=== PATIENT | female | born 1985 | race Caucasian/White ===

== ENCOUNTER → 2022-09-25 10:11 | Outpatient (CLI) | payer OTHER, SELFPAY ==
[2022-09-25 19:15] LABS: Adenovirus,PCR Not Detected (NotDetected); Bordetella Pertussis Not Detected (NotDetected); Chlamydophila Pneumoniae, PCR Not Detected (NotDetected); Coronavirus 229E Not Detected (NotDetected); Coronavirus NL63 Not Detected (NotDetected); Coronavirus OC43 Not Detected (NotDetected); Coronovirus HKU1,PCR Not Detected (NotDetected); Human Metapneumovirus Not Detected (NotDetected); Influenza A, PCR Not Detected (NotDetected); Influenza AH1, 2009 Not Detected (NotDetected); Influenza AH1, PCR Not Detected (NotDetected); Influenza AH3,PCR Not Detected (NotDetected); Influenza B, PCR Not Detected (NotDetected); Mycoplasma Pneumoniae, PCR Not Detected (NotDetected); Parainfluenza 1, PCR Not Detected (NotDetected); Parainfluenza 2, PCR Not Detected (NotDetected); Parainfluenza 3, PCR Not Detected (NotDetected); Parainfluenza 4, PCR Not Detected (NotDetected); Respiratory Syncytial Virus Not Detected (NotDetected); Rhinovirus/Enterovirus Not Detected (NotDetected)
[2022-09-27 03:40] LABS: Coronavirus 19, PCR Detected (NotDetected)
== END ==
PROVIDERS: PCP Nurse Practitioner; Visit Provider Nurse Practitioner
DX: U07.1 COVID-19 (principal)
CPT/HCPCS: 87581; 87632; 87798; C9803; U0003; U0005

== ENCOUNTER → 2022-10-12 09:15 | Outpatient (CLI) | payer OTHER, SELFPAY ==
--- NOTE | 2022-10-12 09:40 | XR_ITS ---
FINAL REPORT CLINICAL HISTORY: palpitations post COVID FINDINGS: Two views of the chest were obtained. The heart size and pulmonary vascularity are within normal limits. The mediastinum is normal. No acute pulmonary abnormality is identified. There is no pneumothorax. The bony thorax is intact. IMPRESSION: No active cardiopulmonary disease. Reviewed, Interpreted and Dictated by Marcell Greene III, MD Transcribed by Gladys Massey Authenticated and [facility]
--- NOTE | 2022-10-12 09:41 | ECG_ITS ---
APPROVED REPORT Exam: Resting ECG HR:74 bpm ECG Measurements Heart Rate 74 AXES GA 201 P 86 QRSd 92 QRS 81 QT 364 T 75 QTc 392 Conclusion SINUS RHYTHM NONSPECIFIC T-WAVE ABNORMALITY BORDERLINE ECG UNCONFIRMED REPORT Electronically signed by : Nikolai Miller MD 10/12/2022 16:43:26
[2022-10-12 12:06] LABS: Basophils % 0.9 % (0.1-2.0); Eosinophils % 0.8 % (0.1-12.0); Hematocrit 40.5 % (37.0-47.0); Hemoglobin 13.2 g/dL (12.2-16.2); Lymphocytes # 1.4 K/mm3 (0.7-4.5); Lymphocytes % 28.7 % (10-50); Mean Corpuscular HGB Conc 32.7 g/dL (31.8-35.4); Mean Corpuscular Hemoglobin 31.4 pg (27.0-31.2); Mean Corpuscular Volume 96.2 fl (81-99); Mean Platelet Volume 8.3 fl (7.4-10.4); Monocytes # 0.3 K/mm3 (0.1-1.0); Monocytes % 6.4 % (1.7-9.3); Neutrophils # 3.1 K/mm3 (1.8-7.8); Neutrophils % 63.3 % (37.0-80.0); Platelet Count 341 K/mm3 (142-424); Red Blood Count 4.21 M/mm3 (4.20-5.40); Red Cell Distribution Width 12.7 % (11.5-17.5); White Blood Count 4.9 K/mm3 (4.8-10.8)
[2022-10-12 12:36] LABS: Alanine Aminotransferase 30 U/L (12-78); Albumin Level 4.4 g/dl (3.5-5.0); Alkaline Phosphatase 53 U/L (38-126); Anion Gap 11.5 mEq/L (5-15); Aspartate Amino Transferase 26 U/L (14-36); Bilirubin,Total 0.2 mg/dl (0.2-1.3); Blood Urea Nitrogen 3 mg/dl (7-17); Calcium 9.7 mg/dl (8.4-10.2); Carbon Dioxide 29 mmol/L (22.0-30.0); Chloride 101 mmol/L (98-107); Estimated Glomerular Filt Rate 80 ml/min (>60); GFR (African American) 97 ML/MIN (>60); Globulin 2.2 g/dL (1.3-3.2); Glucose 54 mg/dl (74-100); Potassium 3.5 mmoL/L (3.5-5.1); Sodium 138 mmol/L (136-145); Total Protein,Serum 6.6 g/dl (6.3-8.2)
== END ==
PROVIDERS: PCP Nurse Practitioner; Visit Provider Nurse Practitioner
DX: R00.2 Palpitations (principal)
CPT/HCPCS: 36415; 71046; 80053; 84443; 85025; 93005; 93225; 93226

== ENCOUNTER → 2022-11-19 12:39 | Outpatient (CLI) | payer OTHER, SELFPAY ==
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
== END ==
LOC: RT 12:40
PROVIDERS: PCP Psychiatry & Neurology Sleep Medicine; Visit Provider Psychiatry & Neurology Sleep Medicine
DX: I49.3 Ventricular premature depolarization (principal)
CPT/HCPCS: 93306

== ENCOUNTER → 2022-11-30 12:34 | Outpatient (CLI) | payer OTHER, SELFPAY ==
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
== END ==
PROVIDERS: PCP Family Medicine; Visit Provider Family Medicine
DX: M25.511 Pain in right shoulder (principal)
CPT/HCPCS: 73221

== ENCOUNTER 2023-02-11 08:00 | Outpatient (RCR) | payer OTHER, SELFPAY ==
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
--- NOTE | 2023-02-11 08:38 | HMH.RHREAS ---
Rehab Reassessment Rehab OP Re-assessment Start: 02/11/23 07:57 Freq: Status: Active Protocol: Document 02/11/23 07:57 ALEX (Rec: 02/11/23 08:38 ALEX [id number]) E-signed By Olivia Byrd OT Rehab Re-assessment Subjective Subjective It's about the same really. Objective Objective Notes Pt continues to be seen twice a week to address right shoulder deficits. Each session, pt engages in right shoulder AROM, AAROM, and strengthening exercises. She also receives PROM manual stretching in all planes (flex , abduction, ER, and IR). Modalities are provided in order to decrease pain/ inflammation. Assessment Progress Assessment Progressing as Expected Assessment Notes Pt reports her pain has improved. She no longer has constant pain as she did before. She normally has pain when she moves the arm in certain positions, specifically in internal rotation. Pt rates her worst pain now at a 5-6/10. She plans to go see ortho for an evaluation. Her AROM has improved since initial evaluation. Pt explains she wants to hold on therapy at this time. Current R shoulder AROM Flex: 132 degrees Abd: 124 degrees ER: 70 degrees IR: 65 degrees Patient goals met ST, 3, and 5 Goals Not Met See below Revised Goals ST and 4 LT-5 Plan Plan Hold at this time per pt request. Time and Billing Re-Eval Time 11 Re-Eval Billing Units 1 PHYSICIAN CERTIFICATION: I certify the specified therapy services for Feliciano Scanlon are required, authorized, and reviewed every 30 days.
== END 2023-02-11 09:07 | disposition home or self-care (01) ==
LOC: OT 08:00
PROVIDERS: Visit Provider Family Medicine
DX: M25.511 Pain in right shoulder (principal)
CPT/HCPCS: 97010; 97014; 97110; 97140; 97164; 97166; 97530; G0283

== ENCOUNTER → 2023-04-01 13:04 | Outpatient (CLI) | payer OTHER, SELFPAY ==
--- NOTE | 2023-04-01 13:05 | US_ITS ---
PROCEDURE: US TRANSVAGINAL CLINICAL INDICATION: menorrhagia, painful periods COMPARISON: No exams were available for comparison FINDINGS: LMP: 03/17/2023 UTERUS: The uterus measures 9cm x 6cmx 4cm with a combined endometrial thickness of 13.6mm. The endometrium has a heterogenous appearance. The uterus is anteverted and normal in shape and size. The myometrium is somewhat heterogenous. There is an anterior subserosal fibroid measuring approximately 1 centimeter in size. There is trace fluid in the cul-de-sac. The cervix has multiple small nabothian cysts. LEFT OVARY: [id number] with a volume of 5ml. The left ovary has multiple small follicles. RIGHT OVARY: 4cmx [id number] with a volume of 15.2ml. The right ovary has multiple follicles the largest which is 1 centimeter. There is a 1 centimeter solid area within the right ovary consistent with a corpus luteum. There is a small amount of free fluid around the right ovary. IMPRESSION: 1. The uterus is normal in shape and size with a small 1 centimeter anterior subserosal fibroid in the lower uterine segment. The endometrium is 13.6 millimeters thick. There are multiple small nabothian cysts within the cervix. 2. Both ovaries appear normal with small follicles bilaterally. 3. There is a trace amount of free fluid in the cul-de-sac and around the right adnexa. Dictated by: Arnel Villavicencio MD 04/01/2023 17:02 Arnel Villavicencio MD in [place] 04/01/2023 17:02
== END ==
PROVIDERS: PCP Family Medicine; Visit Provider Nurse Practitioner Obstetrics & Gynecology
DX: N92.0 Excessive and frequent menstruation with regular cycle (principal); N94.6 Dysmenorrhea, unspecified
CPT/HCPCS: 76830

== ENCOUNTER 2023-09-14 12:32 | Emergency (ER) | payer OTHER, SELFPAY ==
[2023-09-14 12:50] VITALS: BP 128/73; PULSE 77; RESP 21; TEMP 36.6; O2SAT 100; BMI 22.3
--- NOTE | 2023-09-14 12:50 | EXP.UTC ---
Discharge Plan Disposition Patient Disposition: Home, Self-Care Condition: Good Prescriptions Prescriptions: New amoxicillin [amoxicillin] 875 mg tablet 875 mg PO Q12H Qty: 20 0RF methylprednisolone 4 mg Tablets,Dose Pack 4 mg PO DIRECTED Qty: 21 0RF No Action twnkcyyhvo-aacqltamoqdet-lige 50-325-40 mg tablet 1 tab PO Q6H PRN (Reason: headache) Qty: 60 2RF metoprolol succinate 50 mg tablet extended release 24 hr 50 mg PO DAILY Qty: 90 1RF citalopram 10 mg tablet See Rx Instructions .ROUTE .COMPLEX Qty: 90 0RF Dose Instruction: TAKE 1 TABLET BY MOUTH EVERY DAY Rx Instructions: TAKE 1 TABLET BY MOUTH EVERY DAY Referrals Follow up/Referrals: Chu Palumbo MD [Primary Care Provider] - See instructions Activity Restrictions/Add. Instructions Additional Instructions/Restrictions: Drink plenty of fluids. Take tylenol or ibuprofen for pain or fever. Take the medications as directed. Follow up with your regular doctor. GO TO THE ER FOR ANY WORSENING SYMPTOMS Clinical Impressions Clinical Impression: Pharyngitis Instructions Patient Instructions: Sore Throat, DI for Pharyngitis/Tonsillopharyngitis -- Adult Discharge ED Provider: Charlie Baker [facility] General Stated complaint: sore throat, body aches, h/a Time Seen by Provider: 09/14/23 12:50 History of Present Illness Provider Complaint: She states that for the past 2 days she has had sore throat, chills, body aches and low grade fever. Related Data Previous Rx's Medication Instructions Recorded spkflaxkgf-xftrbsfntvbhi-xrofyqme 1 tab PO Q6H PRN headache #60 tabs 05/31/23 50 mg-325 mg-40 mg tablet metoprolol succinate 50 mg 50 mg PO DAILY #90 tabs 05/31/23 tablet,extended release 24 hr amoxicillin 875 mg tablet 875 mg PO Q12H #20 tabs 09/14/23 methylprednisolone 4 mg tablets in 4 mg PO DIRECTED #21 tabs 09/14/23 a dose pack citalopram 10 mg tablet See Rx Instructions .Route 09/18/23 .COMPLEX #90 tabs Allergies Allergy/AdvReac Type Severity Reaction Status Date / Time ketorolac [From Toradol] Allergy Verified 09/14/23 13:01 [facility] Disclaimer: The information contained in this section may have been updated after the patient was seen, as this information can be updated by other users. Medical History (Updated 09/14/23 @ 13:28 by Charlie Baker APRN) Bursitis of shoulder, right Depressive disorder Migraine Right shoulder pain SLAP lesion of right shoulder Surgical History (Updated 03/20/23 @ 13:51 by SHY Wray) H/O laparoscopy History of History of cholecystectomy Family History Other Diabetes Hyperlipidemia Hypertension Social History Smoking Status: Former smoker alcohol intake: current current occupational status: employed Travel in the last 8 weeks: None ROS Obtained: Yes All systems reviewed & no additional complaints except as documented Constitutional Constitutional: Reports chills and Reports fever(s) Eyes Eyes: Denies eye discharge ENT Ears, Nose, Mouth, and Throat: Reports as per HPI Cardiovascular Cardiovascular: Denies chest pain Respiratory Respiratory: Denies chest congestion and Reports cough Gastrointestinal Gastrointestingal: Reports nausea; Denies abdominal pain, constipation, cramping, diarrhea or vomiting Musculoskeletal Musculoskeletal: Denies arthralgias Integumentary/Breasts Skin/Breast: Denies rash Neurologic Neurologic: Denies paresthesias Physical Exam General General appearance: alert and in no apparent distress Head Head exam: atraumatic, normocephalic and normal inspection Eye Eye exam: Present normal appearance; Absent PERRL or EOMI ENT ENT exam: Present mucous membranes moist and normal external ear exam Expanded ENT Exam TM/Canal exam: Bilateral TM: erythema, bulging and effus
[2023-09-14 12:58] LABS: UTC Strep Screen (Rapid) Negative (Negative)
[2023-09-14 13:22] VITALS: BP 128/73; PULSE 77; RESP 21; TEMP 36.6; O2SAT 100
== END 2023-09-14 13:35 | disposition home or self-care (01) ==
PROVIDERS: Emergency Provider Nurse Practitioner Family; PCP Family Medicine
DX: J02.9 Acute pharyngitis, unspecified (principal); R51.9 Headache, unspecified; F33.9 Major depressive disorder, recurrent, unspecified; Z87.891 Personal history of nicotine dependence
CPT/HCPCS: 87880; 99204; 99212; G0463

== ENCOUNTER 2024-12-28 14:58 | Outpatient (CLI) | payer OTHER, SELFPAY ==
--- NOTE | 2024-12-28 14:59 | CT_ITS ---
FINAL REPORT TECHNIQUE: Noncontrast exam This study was performed with techniques to keep radiation doses as low as reasonably achievable, (ALARA). Individualized dose reduction techniques using automated exposure control or adjustment of mA and/or kV according to the patient's size were employed. CLINICAL HISTORY: Cephalgia COMPARISON: None FINDINGS: CT HEAD: No abnormal density is seen. Ventricles are normal. There is no hemorrhage. No mass effect is seen. Bone windows show no evidence of fracture. There is a nonspecific lucency in the right frontal bone, that measures up to 8 mm in size, benign appearing. IMPRESSION: No acute intracranial abnormality identified. Nonspecific lucency in the right frontal bone, which measures up to 8 mm in size, benign appearing. Reviewed, Interpreted and Dictated by Chu Perkins MD Transcribed by Pattie Sheehan Authenticated and [facility]
== END 2024-12-28 23:59 | disposition home or self-care (01) ==
LOC: RAD 14:59
PROVIDERS: PCP Family Medicine; Visit Provider Family Medicine
DX: R51.9 Headache, unspecified (principal)
CPT/HCPCS: 70450

== ENCOUNTER 2025-09-13 10:00 | Outpatient (CLI) | payer OTHER, SELFPAY ==
[2025-09-13 15:40] LABS: Hematocrit 37.5 % (37.0-47.0); Hemoglobin 12.7 g/dL (12.2-16.2); Immature Granulocytes % 0.2 %; Mean Corpuscular HGB Conc 33.9 g/dL (31.8-35.4); Mean Corpuscular Hemoglobin 31.4 pg (27.0-31.2); Mean Corpuscular Volume 92.6 fl (81-99); Nucleated Red Blood Cells % 0 %; Platelet Count 253 K/mm3 (142-424); Red Blood Count 4.05 M/mm3 (4.20-5.40); Red Cell Distribution Width-SD 39.8 fL; White Blood Count 6.1 K/mm3 (4.8-10.8)
[2025-09-13 16:20] LABS: Alanine Aminotransferase 10 U/L (12-78); Albumin Level 4.1 g/dl (3.5-5.0); Albumin/Globulin Ratio 1.8 (1.1-1.8); Alkaline Phosphatase 47 U/L (38-126); Aspartate Amino Transferase 17 U/L (14-36); Bilirubin,Total 0.6 mg/dl (0.2-1.3); Blood Urea Nitrogen 10 mg/dl (7-17); Calcium 9.1 mg/dl (8.4-10.2); Carbon Dioxide 23 mmol/L (22.0-30.0); Chloride 104 mmol/L (98-107); Cholesterol 128 mg/dl (140-200); Creatinine,Serum 0.80 mg/dl (0.52-1.04); Estimated Glomerular Filt Rate 79 ml/min (>60); GFR (African American) 96 ML/MIN (>60); Globulin 2.3 g/dL (1.3-3.2); Glucose 99 mg/dl (74-100); HDL Cholesterol 57 mg/dl (40-60); Sodium 133 mmol/L (136-145); Total Protein,Serum 6.4 g/dl (6.3-8.2); Triglycerides 43 mg/dl (30-150)
[2025-09-13 18:08] LABS: Anion Gap 10.2 mEq/L (5-15); Potassium 4.2 mmoL/L (3.5-5.1)
== END 2025-09-13 23:59 ==
LOC: LAB.DROPOF 09-14 12:30
PROVIDERS: PCP Family Medicine; Visit Provider Family Medicine
DX: Z02.89 Encounter for other administrative examinations (principal); Z13.6 Encounter for screening for cardiovascular disorders
CPT/HCPCS: 80053; 80061; 85025